=== PATIENT | female | born 1940 | race Caucasian/White ===

== ENCOUNTER 2024-02-13 04:12 | Inpatient (IN) | payer MEDICARE ==
[~2024-02-13] VITALS: Ht 165.1 cm; Wt 68.9 kg
[2024-02-13 08:30] VITALS: BP 137/86; TEMP 98.2; O2SAT 98
[2024-02-13] MEDS: OLANZAPINE 10 MG VIAL IM STA (14:20)
[2024-02-13] MEDS: DIVALPROEX SPRINKLE 125 MG CAP.SPRINK PO SCH (18:50)
[2024-02-13 20:00] VITALS: BP 105/60; TEMP 98; O2SAT 99
[2024-02-13] MEDS: risperiDONE 0.25 MG TABLET PO SCH (20:22)
[2024-02-13] MEDS: TEMAZEPAM 7.5 MG CAPSULE PO PRN (23:40)
[2024-02-14 08:09] VITALS: BP 114/60; TEMP 97.6; O2SAT 97
[2024-02-14 09:23] LABS: *CLARITY,URINE CLEAR (CLEAR); *COLOR,URINE YELLOW (YELLOW); *PROTEIN,URINE NEGATIVE (NEGATIVE); PH,URINE 6.5 (5.0-8.0); UGLUCOSE NEGATIVE (NEGATIVE)
[2024-02-14 09:24] LABS: *BILIRUBIN,URIN NEGATIVE (NEGATIVE); *BLOOD, URINE TRACE (NEGATIVE); *KETONES,URINE NEGATIVE (NEGATIVE); *UROBILINOGEN,URINE 0.2 E.U./dl (NORMAL); LEUKOCYTE ESTERASE ,URINE 1+ (NEGATIVE); NITRITE, URINE NEGATIVE (NEGATIVE)
[2024-02-14 09:39] LABS: *AMPHETAMINE, URINE NEGATIVE (NEGATIVE); *BARBITURATE, URINE NEGATIVE (NEGATIVE); *BENZODIAZEPINE, URINE POSITIVE (NEGATIVE); *CANNABINOID, URINE NEGATIVE (NEGATIVE); *COCCAINE, URINE NEGATIVE (NEGATIVE); *OPIATE, URINE NEGATIVE (NEGATIVE); *PHENCYCLIDINE SCREEN,URINE NEGATIVE (NEGATIVE); FENTANYL, URINE NEGATIVE (NEGATIVE)
[2024-02-14 16:00] VITALS: BP 144/57; TEMP 97.8; O2SAT 97
[2024-02-14 16:41] LABS: BASOPHILS % (AUTO) 0.6 % (0.0-2.0); HEMATOCRIT 37.2 % (31.2-41.9); HEMOGLOBIN 12.3 g/dL (10.9-14.3); LYMPHOCYTES # (AUTO) 0.9 K/uL (0.8-4.8); LYMPHOCYTES % (AUTO) 18.1 % (20.5-51.5); MEAN CORPUSCULAR HEMOGLOBIN 28.6 uug (24.7-32.8); MEAN CORPUSCULAR HGB CONC 33 g/dL (32.3-35.6); MEAN CORPUSCULAR VOLUME 86.4 fL (75.5-95.3); MONOCYTES # (AUTO) 0.3 K/uL (0.1-1.30); NEUTROPHILS # (AUTO) 3.5 K/uL (1.8-8.9); NEUTROPHILS % (AUTO) 73.3 % (38.5-71.5); PLATELET COUNT (AUTO) 191 K/uL (179-408); RED BLOOD CELL COUNT(AUTO) 4.31 MIL/uL (3.63-4.92); RED CELL DISTRIBUTION WIDTH 15.6 % (12.3-17.7); WHITE BLOOD COUNT (AUTO) 4.7 K/uL (3.8-11.8)
[2024-02-14 16:52] LABS: DIFFERENTIAL COMMENT 1
[2024-02-14 17:21] LABS: ALANINE AMINOTRANSFERASE 16 U/L (14-59); ALBUMIN 3.7 g/dL (3.4-5.0); ALKALINE PHOSPHATASE 92 U/L (50-136); ASPARTATE AMINOTRANSFERASE 23 U/L (15-37); BILIRUBIN,TOTAL 0.3 mg/dL (0.2-1.0); CARBON DIOXIDE 27 mmol/L (21-32); CHLORIDE 110 mmol/L (98-107); CREATININE 0.8 mg/dL (0.6-1.3); GLUCOSE 92 mg/dL (74-106); POTASSIUM 3.6 mmol/L (3.5-5.1); SODIUM SERUM 147 mmol/L (136-145); TOTAL PROTEIN, SERUM 7.8 g/dL (6.4-8.2); UREA NITROGEN, BLOOD 18 mg/dL (7-18)
[2024-02-14] MEDS: risperiDONE 0.25 MG TABLET PO SCH (18:15)
[2024-02-14 18:29] LABS: THYROID STIMULATING HORMONE 1.563 mIU/mL (0.358-3.740)
[2024-02-14 20:00] VITALS: BP 144/82; TEMP 98; O2SAT 98
[2024-02-14] MEDS: risperiDONE 0.5 MG TABLET PO SCH (21:00)
[2024-02-15 07:59] VITALS: BP 151/79; TEMP 97.7; O2SAT 99
[2024-02-15 08:06] LABS: FOLATE (FOLIC ACID), SERUM 7.5 ng/mL (>3.0)
[2024-02-15] MEDS: DIVALPROEX 250 MG TABLET.DR PO SCH (08:17)
[2024-02-15] MEDS: OLANZAPINE 10 MG VIAL IM STA (09:22)
[2024-02-15 19:59] VITALS: BP 124/65; TEMP 98; O2SAT 96
[2024-02-15] MEDS: LORAZEPAM 0.5 MG TABLET PO PRN (20:19)
[2024-02-16 07:50] VITALS: BP 132/62; TEMP 98.2; O2SAT 98
[2024-02-16] MEDS ORDERED: DIPH-1062 PO (13:28)
[2024-02-16] MEDS ORDERED: SERT-440 PO (13:28)
[2024-02-16] MEDS ORDERED: LORA0.5T48 GT (13:28)
[2024-02-16] MEDS ORDERED: QUET50TA24 PO (13:28)
[2024-02-16] MEDS ORDERED: TRAZ-182 PO (13:28)
[2024-02-16] MEDS ORDERED: DIVA125T2 PO (13:28)
[2024-02-16] MEDS ORDERED: LORA0.5T48 PO (13:28)
[2024-02-16] MEDS: OLANZAPINE 10 MG VIAL IM ONE (16:05)
[2024-02-16 16:28] VITALS: BP 99/64; TEMP 98; O2SAT 97
[2024-02-16 20:06] VITALS: BP 111/60; TEMP 97.8; O2SAT 95
[2024-02-17 07:51] VITALS: BP 113/62; O2SAT 97
[2024-02-17] MEDS: OLANZAPINE 10 MG VIAL IM STA (10:38)
[2024-02-17 16:04] VITALS: BP 128/80; TEMP 97.6; O2SAT 97
[2024-02-17 19:51] VITALS: BP 139/59; TEMP 97.9; O2SAT 99
[2024-02-18 07:30] VITALS: BP 136/62; TEMP 98.2; O2SAT 99
[2024-02-18 15:57] VITALS: BP 114/88; TEMP 98; O2SAT 99
[2024-02-18 19:50] VITALS: BP 126/74; TEMP 98.1; O2SAT 96
[2024-02-19 07:37] VITALS: BP 124/61; TEMP 98; O2SAT 99
[2024-02-19] MEDS: ASPIRIN 81 MG TAB.CHEW PO SCH (09:00)
[2024-02-19] MEDS: risperiDONE 1 MG TABLET PO SCH (10:57)
[2024-02-19] MEDS ORDERED: risperiDONE 0.5 MG TABLET PO SCH (11:00)
[2024-02-19] MEDS: DIVALPROEX 250 MG TABLET.DR PO SCH (11:00)
[2024-02-19] MEDS: OLANZAPINE 10 MG VIAL IM PRN (11:42)
[2024-02-19 15:19] VITALS: BP 101/76; TEMP 98; O2SAT 99
[2024-02-20 08:16] VITALS: BP 139/72; TEMP 98.4; O2SAT 98
[2024-02-20 15:35] VITALS: BP 128/63; TEMP 98; O2SAT 98
[2024-02-20 20:00] VITALS: BP 104/60; TEMP 97.6; O2SAT 98
[2024-02-21 07:54] VITALS: BP 129/68; TEMP 98.2; O2SAT 98
[2024-02-21] MEDS: LORAZEPAM 0.5 MG TABLET PO PRN (15:51)
[2024-02-21] MEDS: ENSURE ENLIVE (VAN) 240 ML LIQUID PO SCH (17:05)
[2024-02-21 20:00] VITALS: BP 107/71; TEMP 98.1; O2SAT 97
[2024-02-22 07:48] VITALS: BP 115/84; O2SAT 96
[2024-02-22] MEDS: DIVALPROEX SPRINKLE 125 MG CAP.SPRINK PO SCH (11:56)
[2024-02-22 16:11] VITALS: BP 131/92; O2SAT 96
[2024-02-22 19:52] VITALS: BP 100/58; TEMP 98.2; O2SAT 98
[2024-02-23 07:43] VITALS: BP 106/72; TEMP 98.4; O2SAT 96
[2024-02-23 16:24] VITALS: BP 133/52; TEMP 98.3; O2SAT 96
[2024-02-23 19:54] VITALS: BP 126/60; TEMP 98.2; O2SAT 96
[2024-02-24 07:57] VITALS: BP 97/58; TEMP 98.1; O2SAT 96
[2024-02-24 16:35] VITALS: BP 123/68; TEMP 98; O2SAT 96
[2024-02-25 08:00] VITALS: BP 92/62; TEMP 97.6; O2SAT 96
[2024-02-25 09:43] VITALS: BP 92/62; TEMP 97.6; O2SAT 97
[2024-02-25 15:24] VITALS: BP 108/65; TEMP 98; O2SAT 98
[2024-02-25 21:42] VITALS: BP 99/64; TEMP 98; O2SAT 98
[2024-02-26 07:20] VITALS: BP 141/68; TEMP 98.4; O2SAT 98
[2024-02-26] MEDS ORDERED: LORAZEPAM 0.5 MG TABLET PO PRN (11:30)
[2024-02-26] MEDS: LORAZEPAM 1 MG TABLET PO PRN (11:41)
[2024-02-26] MEDS ORDERED: risperiDONE-M 0.5 MG TAB.RAPDIS PO SCH (13:00)
[2024-02-26] MEDS: RISPERIDONE-M 0.25 MG TAB.RAPDIS PO SCH (13:19)
[2024-02-26 16:05] VITALS: BP 113/80; TEMP 98.4; O2SAT 99
[2024-02-26] MEDS: LORAZEPAM 1 MG TABLET PO SCH (16:19)
[2024-02-26 20:00] VITALS: BP 125/68; TEMP 98.5; O2SAT 100
[2024-02-26] MEDS: DIVALPROEX SPRINKLE 125 MG CAP.SPRINK PO SCH (20:27)
[2024-02-26 20:30] VITALS: O2SAT 96
[2024-02-27] MEDS ORDERED: NOREPINEPHRINE BITARTRATE 4 MG/4 ML VIAL IV ONE (05:50)
[2024-02-27] MEDS ORDERED: EPINEPHRINE 1:10,000 1 MG/10 ML DISP.SYRIN ONE (06:00)
[2024-02-27] MEDS ORDERED: NOREPINEPHRINE BITARTRATE 8 MG in IV NORMAL SALINE 242 ML IV PRN (06:30)
[2024-02-27 07:29] LABS: ABG BASE EXCESS 0.1 mmol/L (-2.0-2.0); ABG HCO3 22.6 mmol/L (22.0-26.0); ABG PCO2 30.6 mmHg (35.0-48.0); ABG PH 7.487 (7.340-7.440); ABG TOTAL HEMOGLOBIN 13.2 G/dL (12.0-16.0); AaDO2 75.5 mmHg; COHb 0.4 % (0.0-3.9); MetHb 0.1 % (0.0-1.5); O2Hb 71.9 % (94.0-97.0); VT, ABG 500 mL
[2024-02-27 08:06] LABS: LACTIC ACID 5.4 mmol/L (0.4-2.0)
[2024-02-27] MEDS ORDERED: OMEGA-3 FATTY ACIDS/FISH OIL CAPSULE PO SCH (09:00)
[2024-02-27] MEDS ORDERED: IV NORMAL SALINE 250 ML IV ONE (09:41)
[2024-02-27] MEDS ORDERED: IOHEXOL 350 100 ML INFUS..BTL ONE (09:41)
[2024-02-27] MEDS ORDERED: SWABABLE VALVE TRANSFER SET EA MC ONE (09:41)
[2024-02-28] MEDS ORDERED: OLAN10VI2 IM (12:21)
[2024-02-28] MEDS ORDERED: DIVA125C5 PO (12:21)
[2024-02-28] MEDS ORDERED: RISP1TAB7 PO (12:21)
[2024-02-28] MEDS ORDERED: LORA-259 PO (12:21)
[2024-02-28] MEDS ORDERED: RISP0.5T5 PO (12:21)
== END 2024-02-27 06:02 | disposition short-term general hospital (02) | DRG 885 ==
LOC: ER 04:12 → GPS 05:56
PROVIDERS: ADMIT Psychiatry & Neurology Psychosomatic Medicine; ATTEND Nurse Practitioner Acute Care
PROC: 5A12012 Performance of Cardiac Output, Single, Manual (ICD-10-PCS; principal; 2024-02-27)
PROC: 0BH17EZ Insertion of Endotracheal Airway into Trachea, Via Natural or Artificial Opening (ICD-10-PCS; 2024-02-27)
PROC: 06HY33Z Insertion of Infusion Device into Lower Vein, Percutaneous Approach (ICD-10-PCS; 2024-02-27)
DX: F29 Unspecified psychosis not due to a substance or known physiological condition (principal); F01.53 Vascular dementia, unspecified severity, with mood disturbance; I46.9 Cardiac arrest, cause unspecified; F01.511 Vascular dementia, unspecified severity, with agitation; F03.911 Unspecified dementia, unspecified severity, with agitation; E87.1 Hypo-osmolality and hyponatremia; E87.0 Hyperosmolality and hypernatremia; I69.351 Hemiplegia and hemiparesis following cerebral infarction affecting right dominant side; I10 Essential (primary) hypertension; M19.90 Unspecified osteoarthritis, unspecified site; Z91.148 Patient's other noncompliance with medication regimen for other reason; E78.5 Hyperlipidemia, unspecified
CPT/HCPCS: 36415; 70450; 71045; 82746; 83605; 83921; 84443; 85025; J0171; J2358; J3490; J7040; Q9967

== ENCOUNTER 2024-02-27 06:38 | Inpatient (IN) | payer MEDICARE ==
[2024-02-27] VITALS (30 sets, daily range): BP systolic 72–143; BP diastolic 52–94; TEMP 97.3–98.4; O2SAT 100
[~2024-02-27] VITALS: Ht 165.1 cm; Wt 63.5 kg
[2024-02-27] MEDS: NOREPINEPHRINE BITARTRATE 8 MG in IV NORMAL SALINE 242 ML IV PRN ×2 (06:00→15:36)
[~2024-02-27 06:38] MED LIST: DIPH-1062 PO; DIVA125T2 PO; LORA0.5T48 GT; LORA0.5T48 PO; QUET50TA24 PO; SERT-440 PO; TRAZ-182 PO
[2024-02-27] MEDS ORDERED: ETOMIDATE 20 MG/10 ML VIAL ONE (07:10)
[2024-02-27 07:41] LABS: BASOPHILS % (AUTO) 0.2 % (0.0-2.0); EOSINOPHILS # (AUTO) 0.1 K/uL (0.0-0.7); EOSINOPHILS % (AUTO) 0.3 % (0.0-7.0); HEMATOCRIT 38.4 % (31.2-41.9); HEMOGLOBIN 12.5 g/dL (10.9-14.3); LYMPHOCYTES # (AUTO) 1.8 K/uL (0.8-4.8); LYMPHOCYTES % (AUTO) 9.6 % (20.5-51.5); MEAN CORPUSCULAR HEMOGLOBIN 28.8 uug (24.7-32.8); MEAN CORPUSCULAR HGB CONC 33 g/dL (32.3-35.6); MEAN CORPUSCULAR VOLUME 88.5 fL (75.5-95.3); MONOCYTES # (AUTO) 0.7 K/uL (0.1-1.30); NEUTROPHILS # (AUTO) 15.8 K/uL (1.8-8.9); NEUTROPHILS % (AUTO) 85.9 % (38.5-71.5); PLATELET COUNT (AUTO) 144 K/uL (179-408); RED BLOOD CELL COUNT(AUTO) 4.33 MIL/uL (3.63-4.92); RED CELL DISTRIBUTION WIDTH 15.5 % (12.3-17.7); WHITE BLOOD COUNT (AUTO) 18.4 K/uL (3.8-11.8)
[2024-02-27 07:44] LABS: DIFFERENTIAL COMMENT 1
[2024-02-27 07:54] LABS: CALCIUM 8.3 mg/dL (8.5-10.1); CARBON DIOXIDE 24 mmol/L (21-32); CHLORIDE 114 mmol/L (98-107); CREATININE 1.3 mg/dL (0.6-1.3); GLUCOSE 227 mg/dL (74-106); POTASSIUM 4.5 mmol/L (3.5-5.1); SODIUM SERUM 152 mmol/L (136-145); UREA NITROGEN, BLOOD 52 mg/dL (7-18)
[2024-02-27 08:07] LABS: ALANINE AMINOTRANSFERASE 167 U/L (14-59); ALBUMIN 2.6 g/dL (3.4-5.0); ALKALINE PHOSPHATASE 89 U/L (50-136); ASPARTATE AMINOTRANSFERASE 227 U/L (15-37); BILIRUBIN,TOTAL 0.9 mg/dL (0.2-1.0); NT-PRO BNP 309 pg/mL (0-125); TOTAL PROTEIN, SERUM 7.2 g/dL (6.4-8.2)
[2024-02-27] MEDS: IV NORMAL SALINE 1000 ML BAG IV ONE (08:23)
[2024-02-27] MEDS ORDERED: AMIODARONE HCL 150 MG/3 ML VIAL IV ONE (08:35)
[2024-02-27] MEDS: AMIODARONE HCL IV 150 MG in IV DEXTROSE 5% 100 ML IV ONE (08:45)
[2024-02-27] MEDS ORDERED: PIPERACILLIN SODIUM/TAZOBACTAM 3.375 G in IV DEXTROSE 5% 50 ML IV SCH (09:15)
[2024-02-27 09:37] LABS: ABG BASE EXCESS -0.6 mmol/L (-2.0-2.0); ABG HCO3 23.2 mmol/L (22.0-26.0); ABG PCO2 35.4 mmHg (35.0-48.0); ABG PH 7.434 (7.340-7.440); ABG SITE RIGHT BRACHIAL; ABG TOTAL HEMOGLOBIN 12.7 G/dL (12.0-16.0); AaDO2 99.9 mmHg; COHb 0.1 % (0.0-3.9); MetHb 0.2 % (0.0-1.5); O2Hb 99.6 % (94.0-97.0); VT, ABG 500 mL
[2024-02-27] MEDS ORDERED: NOREPINEPHRINE BITARTRATE 4 MG/4 ML VIAL IV ONE (09:47)
[2024-02-27] MEDS: PROPOFOL 1,000 MG/100 ML BOTTLE IV ONE (10:54)
[2024-02-27] MEDS: AMIODARONE HCL IV 450 MG in IV DEXTROSE 5% 250 ML IV PRN (10:58)
[2024-02-27] MEDS: PANTOPRAZOLE SODIUM 40 MG VIAL IV SCH (13:18)
[2024-02-27] MEDS: IV DEXTROSE 5% 500 ML BAG IV ONE (13:20)
[2024-02-27] MEDS: PIPERACILLIN SODIUM/TAZOBACTAM 3.375 G in IV DEXTROSE 5% 100 ML IV SCH (13:21)
[2024-02-27] MEDS: HEPARIN SODIUM,PORCINE 1,000 UNITS/ML VIAL IV ONE (15:06)
[2024-02-27] MEDS: HEPARIN SODIUM,PORCINE 5,000 UNITS/ML VIAL SQ ONE (15:06)
[2024-02-27] MEDS: HEPARIN/D5W DRIP 500 ML IV PRN (15:09)
[2024-02-27] MEDS: IV D5 1/2 NS 1000 ML 1,000 ML IV PRN (16:31)
[2024-02-27] MEDS: PROPOFOL 100 ML IV PRN (23:13)
[2024-02-28] VITALS (28 sets, daily range): BP systolic 96–141; BP diastolic 45–77; TEMP 97.3–99.6; O2SAT 99–100
[2024-02-28 06:21] LABS: ABG BASE EXCESS 2.9 mmol/L (-2.0-2.0); ABG HCO3 24.9 mmol/L (22.0-26.0); ABG PCO2 29.4 mmHg (35.0-48.0); ABG PH 7.545 (7.340-7.440); ABG PO2 131.1 mmHg (75.0-100.0); ABG SITE ALINE; ABG TOTAL HEMOGLOBIN 11.1 G/dL (12.0-16.0); COHb 0.3 % (0.0-3.9); MetHb 0.2 % (0.0-1.5); O2Hb 98.1 % (94.0-97.0); VT, ABG 500 mL
[2024-02-28 07:27] LABS: BASOPHILS % (AUTO) 0.3 % (0.0-2.0); EOSINOPHILS # (AUTO) 0.1 K/uL (0.0-0.7); EOSINOPHILS % (AUTO) 0.5 % (0.0-7.0); HEMATOCRIT 32.6 % (31.2-41.9); HEMOGLOBIN 10.6 g/dL (10.9-14.3); LYMPHOCYTES # (AUTO) 1.4 K/uL (0.8-4.8); MEAN CORPUSCULAR HEMOGLOBIN 28.7 uug (24.7-32.8); MEAN CORPUSCULAR HGB CONC 33 g/dL (32.3-35.6); MEAN CORPUSCULAR VOLUME 88.3 fL (75.5-95.3); MONOCYTES # (AUTO) 1.1 K/uL (0.1-1.30); MONOCYTES % (AUTO) 9.6 % (0.0-11.0); NEUTROPHILS # (AUTO) 8.7 K/uL (1.8-8.9); NEUTROPHILS % (AUTO) 77.6 % (38.5-71.5); PLATELET COUNT (AUTO) 106 K/uL (179-408); RED BLOOD CELL COUNT(AUTO) 3.69 MIL/uL (3.63-4.92); RED CELL DISTRIBUTION WIDTH 15.1 % (12.3-17.7); WHITE BLOOD COUNT (AUTO) 11.3 K/uL (3.8-11.8)
[2024-02-28 07:34] LABS: DIFFERENTIAL COMMENT 1
[2024-02-28 07:54] LABS: ALANINE AMINOTRANSFERASE 94 U/L (14-59); ALKALINE PHOSPHATASE 70 U/L (50-136); ASPARTATE AMINOTRANSFERASE 71 U/L (15-37); BILIRUBIN,TOTAL 0.5 mg/dL (0.2-1.0); CARBON DIOXIDE 28 mmol/L (21-32); CHLORIDE 109 mmol/L (98-107); GLUCOSE 138 mg/dL (74-106); MAGNESIUM 2.4 mg/dL (1.8-2.4); POTASSIUM 4.1 mmol/L (3.5-5.1); SODIUM SERUM 146 mmol/L (136-145); TOTAL PROTEIN, SERUM 5.9 g/dL (6.4-8.2); UREA NITROGEN, BLOOD 35 mg/dL (7-18)
[2024-02-28] MEDS ORDERED: PANTOPRAZOLE SODIUM 40 MG VIAL IV SCH (09:00)
[2024-02-28 10:56] LABS: *BILIRUBIN,URIN NEGATIVE (NEGATIVE); *BLOOD, URINE 2+ (NEGATIVE); *CLARITY,URINE CLEAR (CLEAR); *COLOR,URINE YELLOW (YELLOW); *KETONES,URINE NEGATIVE (NEGATIVE); *PROTEIN,URINE TRACE (NEGATIVE); *UROBILINOGEN,URINE 0.2 E.U./dl (NORMAL); LEUKOCYTE ESTERASE ,URINE NEGATIVE (NEGATIVE); NITRITE, URINE NEGATIVE (NEGATIVE); PH,URINE 5.5 (5.0-8.0); UGLUCOSE NEGATIVE (NEGATIVE)
[2024-02-28] MEDS ORDERED: OLAN10VI2 IM (12:21)
[2024-02-28] MEDS ORDERED: LORA-259 PO (12:21)
[2024-02-28] MEDS ORDERED: RISP1TAB7 PO (12:21)
[2024-02-28] MEDS ORDERED: RISP0.5T5 PO (12:21)
[2024-02-28] MEDS ORDERED: DIVA125C5 PO (12:21)
[2024-02-28 12:32] LABS: RBC,URINE 20-50 /HPF (0-3); WBC,URINE 0-3 /HPF (0-3)
[2024-02-28 12:33] LABS: BACTERIA,URINE MODERATE /HPF (NONE SEEN); SQUAMOUS EPITHELIAL CELL,UR FEW /HPF (NONE SEEN); URIC ACID CRYSTALS,URINE PRESENT /HPF (NONE SEEN)
[2024-02-28] MEDS: REMEDY ESSENTIAL ZINC PASTE 113 GM TOP SCH (20:34)
[2024-02-28] MEDS ORDERED: ETOMIDATE 20 MG/10 ML VIAL ONE (23:00)
[2024-02-29] VITALS (32 sets, daily range): BP systolic 95–167; BP diastolic 54–130; TEMP 98.7–100.3; O2SAT 96–100
[2024-02-29 05:21] LABS: BASOPHILS % (AUTO) 0.3 % (0.0-2.0); EOSINOPHILS # (AUTO) 0.2 K/uL (0.0-0.7); EOSINOPHILS % (AUTO) 1.7 % (0.0-7.0); HEMOGLOBIN 9.4 g/dL (10.9-14.3); LYMPHOCYTES # (AUTO) 1.3 K/uL (0.8-4.8); LYMPHOCYTES % (AUTO) 13.8 % (20.5-51.5); MEAN CORPUSCULAR HEMOGLOBIN 29.3 uug (24.7-32.8); MEAN CORPUSCULAR HGB CONC 34 g/dL (32.3-35.6); MEAN CORPUSCULAR VOLUME 87.2 fL (75.5-95.3); MONOCYTES # (AUTO) 0.6 K/uL (0.1-1.30); MONOCYTES % (AUTO) 6.4 % (0.0-11.0); NEUTROPHILS # (AUTO) 7.4 K/uL (1.8-8.9); NEUTROPHILS % (AUTO) 77.8 % (38.5-71.5); PLATELET COUNT (AUTO) 127 K/uL (179-408); RED BLOOD CELL COUNT(AUTO) 3.21 MIL/uL (3.63-4.92); RED CELL DISTRIBUTION WIDTH 14.8 % (12.3-17.7); WHITE BLOOD COUNT (AUTO) 9.5 K/uL (3.8-11.8)
[2024-02-29 05:57] LABS: DIFFERENTIAL COMMENT 1
[2024-02-29 06:07] LABS: CREATININE 0.7 mg/dL (0.6-1.3); MAGNESIUM 2.2 mg/dL (1.8-2.4); PHOSPHOROUS 3.4 mg/dL (2.5-4.9); POTASSIUM 3.6 mmol/L (3.5-5.1)
[2024-02-29 07:29] LABS: ABG BASE EXCESS 2.1 mmol/L (-2.0-2.0); ABG HCO3 26.5 mmol/L (22.0-26.0); ABG PCO2 40.3 mmHg (35.0-48.0); ABG PH 7.435 (7.340-7.440); ABG PO2 70.9 mmHg (75.0-100.0); ABG TOTAL HEMOGLOBIN 10.6 G/dL (12.0-16.0); AaDO2 94.8 mmHg; COHb 0.3 % (0.0-3.9); MetHb 0.2 % (0.0-1.5); O2Hb 93.4 % (94.0-97.0)
[2024-02-29] MEDS ORDERED: DC PROPOFOL ONCE EXTUBATED XX PRN (08:00)
[2024-02-29] MEDS: ACETAMINOPHEN 650 MG SUPP.RECT RC PRN (08:24)
[2024-02-29] MEDS: REMEDY ESSENTIAL ZINC PASTE 113 GM TOP PRN (08:24)
[2024-02-29] MEDS: HEPARIN SODIUM,PORCINE 5,000 UNITS/ML VIAL IV ONE (15:42)
[2024-03-01] VITALS (26 sets, daily range): BP systolic 136–189; BP diastolic 56–92; TEMP 97.7–99.4; O2SAT 96–100
[2024-03-01 04:59] LABS: BASOPHILS % (AUTO) 0.5 % (0.0-2.0); EOSINOPHILS # (AUTO) 0.1 K/uL (0.0-0.7); EOSINOPHILS % (AUTO) 1.5 % (0.0-7.0); HEMATOCRIT 28.5 % (31.2-41.9); HEMOGLOBIN 9.5 g/dL (10.9-14.3); LYMPHOCYTES # (AUTO) 0.6 K/uL (0.8-4.8); LYMPHOCYTES % (AUTO) 8.7 % (20.5-51.5); MEAN CORPUSCULAR HGB CONC 34 g/dL (32.3-35.6); MEAN CORPUSCULAR VOLUME 86.7 fL (75.5-95.3); MONOCYTES # (AUTO) 0.4 K/uL (0.1-1.30); MONOCYTES % (AUTO) 5.8 % (0.0-11.0); NEUTROPHILS # (AUTO) 5.8 K/uL (1.8-8.9); NEUTROPHILS % (AUTO) 83.5 % (38.5-71.5); PLATELET COUNT (AUTO) 182 K/uL (179-408); RED BLOOD CELL COUNT(AUTO) 3.29 MIL/uL (3.63-4.92); RED CELL DISTRIBUTION WIDTH 14.3 % (12.3-17.7); WHITE BLOOD COUNT (AUTO) 6.9 K/uL (3.8-11.8)
[2024-03-01 05:18] LABS: CALCIUM 8.1 mg/dL (8.5-10.1); CARBON DIOXIDE 28 mmol/L (21-32); CHLORIDE 109 mmol/L (98-107); CREATININE 0.6 mg/dL (0.6-1.3); GLUCOSE 93 mg/dL (74-106); MAGNESIUM 1.9 mg/dL (1.8-2.4); PHOSPHOROUS 2.8 mg/dL (2.5-4.9); POTASSIUM 3.2 mmol/L (3.5-5.1); SODIUM SERUM 145 mmol/L (136-145); UREA NITROGEN, BLOOD 13 mg/dL (7-18)
[2024-03-01 05:37] LABS: ABG BASE EXCESS 1.7 mmol/L (-2.0-2.0); ABG HCO3 24.7 mmol/L (22.0-26.0); ABG PCO2 33.2 mmHg (35.0-48.0); ABG PO2 81.6 mmHg (75.0-100.0); ABG SITE LEFT RADIAL; ABG TOTAL HEMOGLOBIN 10.8 G/dL (12.0-16.0); AaDO2 96.9 mmHg; COHb 0.3 % (0.0-3.9); MetHb 0.2 % (0.0-1.5); O2Hb 95.7 % (94.0-97.0)
[2024-03-01 05:40] LABS: DIFFERENTIAL COMMENT 1
[2024-03-01] MEDS: HEPARIN SODIUM,PORCINE 5,000 UNITS/ML VIAL IV ONE (07:41)
[2024-03-01] MEDS: POTASSIUM CHLORIDE 50 ML IV SCH (10:48)
[2024-03-01] MEDS: METOPROLOL TARTRATE 5 MG/5 ML VIAL IVP PRN (11:45)
[2024-03-01] MEDS: PROTEIN SUPPLEMENT (PROSTAT) 30 ML LIQUID PO SCH (12:04)
[2024-03-02] VITALS (17 sets, daily range): BP systolic 93–165; BP diastolic 64–96; TEMP 97.6–99.7; O2SAT 95–100
[2024-03-02 04:53] LABS: BASOPHILS % (AUTO) 0.4 % (0.0-2.0); EOSINOPHILS # (AUTO) 0.1 K/uL (0.0-0.7); EOSINOPHILS % (AUTO) 1.7 % (0.0-7.0); HEMATOCRIT 31.3 % (31.2-41.9); HEMOGLOBIN 10.6 g/dL (10.9-14.3); LYMPHOCYTES # (AUTO) 0.6 K/uL (0.8-4.8); LYMPHOCYTES % (AUTO) 8.8 % (20.5-51.5); MEAN CORPUSCULAR HEMOGLOBIN 29.2 uug (24.7-32.8); MEAN CORPUSCULAR HGB CONC 34 g/dL (32.3-35.6); MEAN CORPUSCULAR VOLUME 86.2 fL (75.5-95.3); MONOCYTES # (AUTO) 0.4 K/uL (0.1-1.30); MONOCYTES % (AUTO) 5.8 % (0.0-11.0); NEUTROPHILS % (AUTO) 83.3 % (38.5-71.5); PLATELET COUNT (AUTO) 251 K/uL (179-408); RED BLOOD CELL COUNT(AUTO) 3.64 MIL/uL (3.63-4.92); RED CELL DISTRIBUTION WIDTH 14.4 % (12.3-17.7); WHITE BLOOD COUNT (AUTO) 7.2 K/uL (3.8-11.8)
[2024-03-02 05:22] LABS: DIFFERENTIAL COMMENT 1
[2024-03-02 05:36] LABS: ALANINE AMINOTRANSFERASE 44 U/L (14-59); ALKALINE PHOSPHATASE 161 U/L (50-136); ASPARTATE AMINOTRANSFERASE 28 U/L (15-37); BILIRUBIN,TOTAL 1.2 mg/dL (0.2-1.0); CALCIUM 8.3 mg/dL (8.5-10.1); CARBON DIOXIDE 29 mmol/L (21-32); CHLORIDE 105 mmol/L (98-107); CREATININE 0.7 mg/dL (0.6-1.3); GLUCOSE 76 mg/dL (74-106); MAGNESIUM 1.9 mg/dL (1.8-2.4); PHOSPHOROUS 3.1 mg/dL (2.5-4.9); POTASSIUM 3.1 mmol/L (3.5-5.1); SODIUM SERUM 141 mmol/L (136-145); TOTAL PROTEIN, SERUM 6.3 g/dL (6.4-8.2); UREA NITROGEN, BLOOD 15 mg/dL (7-18)
[2024-03-02] MEDS: HEPARIN SODIUM,PORCINE 5,000 UNITS/ML VIAL IV ONE (06:55)
[2024-03-02] MEDS: POTASSIUM CHLORIDE 50 ML IV SCH (08:01)
[2024-03-02] MEDS: DIVALPROEX SPRINKLE 125 MG CAP.SPRINK PO SCH ×2 (11:03→13:50)
[2024-03-02] MEDS: METOPROLOL TARTRATE 25 MG TABLET PO SCH (16:48)
[2024-03-02] MEDS ORDERED: CEFTRIAXONE /D5W 50ML IVPB **ER PYXIS IV ONE (21:53)
[2024-03-02] MEDS: CEFTRIAXONE 1 G in IV DEXTROSE 5% 50 ML IV ONE (21:57)
[2024-03-03] VITALS (10 sets, daily range): BP systolic 106–140; BP diastolic 49–75; TEMP 97.3–98.4; O2SAT 95–100
[2024-03-03 05:13] LABS: BASOPHILS % (AUTO) 0.8 % (0.0-2.0); EOSINOPHILS # (AUTO) 0.2 K/uL (0.0-0.7); EOSINOPHILS % (AUTO) 3.2 % (0.0-7.0); HEMOGLOBIN 9.9 g/dL (10.9-14.3); LYMPHOCYTES # (AUTO) 0.7 K/uL (0.8-4.8); LYMPHOCYTES % (AUTO) 13.7 % (20.5-51.5); MEAN CORPUSCULAR HGB CONC 34 g/dL (32.3-35.6); MEAN CORPUSCULAR VOLUME 84.8 fL (75.5-95.3); MONOCYTES # (AUTO) 0.4 K/uL (0.1-1.30); MONOCYTES % (AUTO) 8.6 % (0.0-11.0); NEUTROPHILS # (AUTO) 3.8 K/uL (1.8-8.9); NEUTROPHILS % (AUTO) 73.7 % (38.5-71.5); PLATELET COUNT (AUTO) 288 K/uL (179-408); RED BLOOD CELL COUNT(AUTO) 3.42 MIL/uL (3.63-4.92); RED CELL DISTRIBUTION WIDTH 14.2 % (12.3-17.7); WHITE BLOOD COUNT (AUTO) 5.2 K/uL (3.8-11.8)
[2024-03-03 05:14] LABS: DIFFERENTIAL COMMENT 1
[2024-03-03 05:22] LABS: CALCIUM 8.4 mg/dL (8.5-10.1); CARBON DIOXIDE 27 mmol/L (21-32); CHLORIDE 107 mmol/L (98-107); CREATININE 0.6 mg/dL (0.6-1.3); GLUCOSE 85 mg/dL (74-106); MAGNESIUM 1.9 mg/dL (1.8-2.4); PHOSPHOROUS 3.2 mg/dL (2.5-4.9); POTASSIUM 3.2 mmol/L (3.5-5.1); SODIUM SERUM 142 mmol/L (136-145); UREA NITROGEN, BLOOD 14 mg/dL (7-18)
[2024-03-03 06:04] LABS: ABG BASE EXCESS 0.7 mmol/L (-2.0-2.0); ABG HCO3 23.8 mmol/L (22.0-26.0); ABG PCO2 33.2 mmHg (35.0-48.0); ABG PH 7.474 (7.340-7.440); ABG PO2 99.7 mmHg (75.0-100.0); ABG SITE LEFT RADIAL; ABG TOTAL HEMOGLOBIN 11.2 G/dL (12.0-16.0); AaDO2 97.9 mmHg; COHb 0.3 % (0.0-3.9); MetHb 0.4 % (0.0-1.5); O2Hb 96.9 % (94.0-97.0)
[2024-03-03] MEDS: POTASSIUM CHLORIDE 20 MEQ TAB.PRT.SR PO ONE (06:38)
[2024-03-03] MEDS ORDERED: PANTOPRAZOLE SODIUM 40 MG TABLET.DR PO SCH (07:00)
[2024-03-03] MEDS: PANTOPRAZOLE ORAL SUSPENSION 40 MG SUSPDR.PKT GT SCH (09:07)
[2024-03-03] MEDS ORDERED: POTASSIUM CHLORIDE 50 ML IV SCH (12:15)
[2024-03-03] MEDS ORDERED: HEPARIN/NS 500 ML ONE (15:12)
[2024-03-03] MEDS ORDERED: HEPARIN SODIUM,PORCINE 1,000 UNITS/ML VIAL ONE (15:12)
[2024-03-03] MEDS ORDERED: IOHEXOL 300MG/ML 50 ML VIAL ONE (15:12)
[2024-03-03] MEDS ORDERED: LIDOCAINE HCL 1% 20 ML VIAL ONE (15:13)
[2024-03-03] MEDS ORDERED: PROPOFOL 200 MG/20 ML BOTTLE ONE (16:00)
[2024-03-03] MEDS ORDERED: FENTANYL CITRATE 100 MCG/2 ML AMPUL ONE (16:46)
[2024-03-03] MEDS ORDERED: KETAMINE HCL 500 MG/5 ML VIAL ONE (16:46)
[2024-03-03] MEDS ORDERED: FAMOTIDINE. 20 MG/2 ML VIAL IV ONE (16:47)
[2024-03-03] MEDS ORDERED: ALBUMIN HUMAN 5% 500 ML ONE (16:47)
[2024-03-03] MEDS ORDERED: MISCELLANEOUS MED XX PRN (19:00)
[2024-03-03] MEDS: CEFTRIAXONE 1 G in IV DEXTROSE 5% 50 ML IV SCH (20:35)
[2024-03-04 00:09] VITALS: BP 166/80; TEMP 97.4; O2SAT 96
[2024-03-04 05:13] VITALS: BP 148/92; TEMP 98.6; O2SAT 98
[2024-03-04 07:20] LABS: BASOPHILS % (AUTO) 0.6 % (0.0-2.0); EOSINOPHILS # (AUTO) 0.1 K/uL (0.0-0.7); EOSINOPHILS % (AUTO) 2.6 % (0.0-7.0); HEMATOCRIT 29.9 % (31.2-41.9); HEMOGLOBIN 10.3 g/dL (10.9-14.3); LYMPHOCYTES # (AUTO) 0.8 K/uL (0.8-4.8); LYMPHOCYTES % (AUTO) 14.6 % (20.5-51.5); MEAN CORPUSCULAR HEMOGLOBIN 29.4 uug (24.7-32.8); MEAN CORPUSCULAR HGB CONC 34 g/dL (32.3-35.6); MEAN CORPUSCULAR VOLUME 85.5 fL (75.5-95.3); MONOCYTES # (AUTO) 0.5 K/uL (0.1-1.30); MONOCYTES % (AUTO) 9.1 % (0.0-11.0); NEUTROPHILS # (AUTO) 3.8 K/uL (1.8-8.9); NEUTROPHILS % (AUTO) 73.1 % (38.5-71.5); PLATELET COUNT (AUTO) 327 K/uL (179-408); RED BLOOD CELL COUNT(AUTO) 3.49 MIL/uL (3.63-4.92); RED CELL DISTRIBUTION WIDTH 14.3 % (12.3-17.7); WHITE BLOOD COUNT (AUTO) 5.2 K/uL (3.8-11.8)
[2024-03-04 07:26] LABS: CALCIUM 8.6 mg/dL (8.5-10.1); CARBON DIOXIDE 27 mmol/L (21-32); CHLORIDE 109 mmol/L (98-107); CREATININE 0.6 mg/dL (0.6-1.3); GLUCOSE 71 mg/dL (74-106); POTASSIUM 3.5 mmol/L (3.5-5.1); SODIUM SERUM 144 mmol/L (136-145); UREA NITROGEN, BLOOD 12 mg/dL (7-18)
[2024-03-04 08:00] VITALS: BP 152/62; TEMP 97.7; O2SAT 92
[2024-03-04 08:04] LABS: DIFFERENTIAL COMMENT 1
[2024-03-04] MEDS ORDERED: CEFTRIAXONE 1 G in IV DEXTROSE 5% 50 ML IV SCH (09:00)
[2024-03-04] MEDS: POTASSIUM CHLORIDE 50 ML IV SCH (09:40)
[2024-03-04] MEDS: ENOXAPARIN SODIUM 60 MG/0.6 ML DISP.SYRIN SQ SCH (10:57)
[2024-03-04 12:00] VITALS: BP 154/73; TEMP 97.9; O2SAT 100
[2024-03-04 16:25] VITALS: BP 156/57; TEMP 97.5; O2SAT 100
[2024-03-04 20:00] VITALS: BP 145/48; TEMP 97.9; O2SAT 93
[2024-03-04] MEDS: OLANZAPINE 10 MG VIAL IM ONE (22:07)
[2024-03-05 00:22] VITALS: BP 151/70; TEMP 98; O2SAT 96
[2024-03-05 04:15] VITALS: BP 134/91; TEMP 97.4; O2SAT 94
[2024-03-05 07:32] LABS: BASOPHILS % (AUTO) 0.5 % (0.0-2.0); EOSINOPHILS # (AUTO) 0.2 K/uL (0.0-0.7); EOSINOPHILS % (AUTO) 2.9 % (0.0-7.0); HEMATOCRIT 32.4 % (31.2-41.9); HEMOGLOBIN 11.1 g/dL (10.9-14.3); LYMPHOCYTES # (AUTO) 0.9 K/uL (0.8-4.8); MEAN CORPUSCULAR HEMOGLOBIN 29.2 uug (24.7-32.8); MEAN CORPUSCULAR HGB CONC 34 g/dL (32.3-35.6); MEAN CORPUSCULAR VOLUME 85.2 fL (75.5-95.3); MONOCYTES # (AUTO) 0.5 K/uL (0.1-1.30); MONOCYTES % (AUTO) 9.4 % (0.0-11.0); NEUTROPHILS # (AUTO) 3.8 K/uL (1.8-8.9); NEUTROPHILS % (AUTO) 70.2 % (38.5-71.5); PLATELET COUNT (AUTO) 379 K/uL (179-408); WHITE BLOOD COUNT (AUTO) 5.5 K/uL (3.8-11.8)
[2024-03-05 07:47] LABS: CALCIUM 8.9 mg/dL (8.5-10.1); CARBON DIOXIDE 25 mmol/L (21-32); CHLORIDE 105 mmol/L (98-107); CREATININE 0.6 mg/dL (0.6-1.3); GLUCOSE 57 mg/dL (74-106); MAGNESIUM 2.1 mg/dL (1.8-2.4); PHOSPHOROUS 2.7 mg/dL (2.5-4.9); POTASSIUM 3.6 mmol/L (3.5-5.1); SODIUM SERUM 142 mmol/L (136-145); UREA NITROGEN, BLOOD 11 mg/dL (7-18)
[2024-03-05 07:51] LABS: DIFFERENTIAL COMMENT 1
[2024-03-05 07:55] VITALS: BP 153/74; TEMP 98; O2SAT 86
[2024-03-05] MEDS ORDERED: hydrALAZINE HCL 20 MG/1 ML VIAL IV PRN (09:30)
[2024-03-05 12:00] VITALS: BP 134/82; TEMP 97.6; O2SAT 92
[2024-03-05 16:10] VITALS: BP 147/69; TEMP 97.5; O2SAT 90
[2024-03-05] MEDS: JEVITY 1.2 1000 ML LIQUID GT PRN (16:16)
[2024-03-05] MEDS: OLANZAPINE 10 MG VIAL IM ONE (21:14)
[2024-03-05 21:42] VITALS: BP 144/80; TEMP 98.2; O2SAT 98
[2024-03-06 00:46] VITALS: BP 144/75; TEMP 98.6; O2SAT 99
[2024-03-06 06:46] VITALS: BP 100/69; TEMP 98.6; O2SAT 100
[2024-03-06] MEDS: DIVALPROEX SPRINKLE 125 MG CAP.SPRINK PO SCH (09:19)
[2024-03-06 11:06] VITALS: BP 122/60; TEMP 98; O2SAT 94
[2024-03-06 15:29] VITALS: BP 135/62; TEMP 97.6; O2SAT 98
[2024-03-06] MEDS: OLANZAPINE 10 MG VIAL IM ONE (18:43)
[2024-03-06 20:00] VITALS: BP 132/71; TEMP 97.9; O2SAT 94
[2024-03-06 20:37] VITALS: O2SAT 95
[2024-03-06] MEDS: APIXABAN 5 MG TABLET NG SCH (21:24)
[2024-03-07 06:00] VITALS: BP 130/69; TEMP 98.6; O2SAT 95
[2024-03-07 06:14] LABS: BASOPHILS % (AUTO) 0.6 % (0.0-2.0); EOSINOPHILS # (AUTO) 0.2 K/uL (0.0-0.7); EOSINOPHILS % (AUTO) 3.2 % (0.0-7.0); HEMATOCRIT 30.2 % (31.2-41.9); HEMOGLOBIN 10.4 g/dL (10.9-14.3); LYMPHOCYTES # (AUTO) 1.1 K/uL (0.8-4.8); LYMPHOCYTES % (AUTO) 19.7 % (20.5-51.5); MEAN CORPUSCULAR HEMOGLOBIN 29.3 uug (24.7-32.8); MEAN CORPUSCULAR HGB CONC 34 g/dL (32.3-35.6); MEAN CORPUSCULAR VOLUME 85.4 fL (75.5-95.3); MONOCYTES # (AUTO) 0.5 K/uL (0.1-1.30); MONOCYTES % (AUTO) 9.8 % (0.0-11.0); NEUTROPHILS # (AUTO) 3.6 K/uL (1.8-8.9); NEUTROPHILS % (AUTO) 66.7 % (38.5-71.5); PLATELET COUNT (AUTO) 359 K/uL (179-408); RED BLOOD CELL COUNT(AUTO) 3.54 MIL/uL (3.63-4.92); RED CELL DISTRIBUTION WIDTH 14.7 % (12.3-17.7); WHITE BLOOD COUNT (AUTO) 5.4 K/uL (3.8-11.8)
[2024-03-07 06:25] LABS: DIFFERENTIAL COMMENT 1
[2024-03-07 06:27] LABS: CALCIUM 8.2 mg/dL (8.5-10.1); CARBON DIOXIDE 27 mmol/L (21-32); CHLORIDE 110 mmol/L (98-107); CREATININE 0.6 mg/dL (0.6-1.3); GLUCOSE 109 mg/dL (74-106); PHOSPHOROUS 3.1 mg/dL (2.5-4.9); POTASSIUM 3.6 mmol/L (3.5-5.1); SODIUM SERUM 144 mmol/L (136-145); UREA NITROGEN, BLOOD 13 mg/dL (7-18)
[2024-03-07 08:00] VITALS: BP 118/50; TEMP 97.6; O2SAT 97
[2024-03-07 12:00] VITALS: BP 98/62; TEMP 97.2; O2SAT 98
[2024-03-07 16:00] VITALS: BP 136/68; TEMP 97.6; O2SAT 97
[2024-03-07 20:27] VITALS: O2SAT 95
[2024-03-07 20:34] VITALS: BP 128/99; TEMP 98; O2SAT 96
[2024-03-07] MEDS: ACETAMINOPHEN 325 MG TABLET PO PRN (22:10)
[2024-03-08 05:20] VITALS: BP 133/60; TEMP 98.1; O2SAT 94
[2024-03-08 06:21] LABS: BASOPHILS % (AUTO) 0.8 % (0.0-2.0); EOSINOPHILS # (AUTO) 0.2 K/uL (0.0-0.7); EOSINOPHILS % (AUTO) 2.7 % (0.0-7.0); HEMATOCRIT 33.3 % (31.2-41.9); HEMOGLOBIN 11.3 g/dL (10.9-14.3); LYMPHOCYTES # (AUTO) 1.3 K/uL (0.8-4.8); LYMPHOCYTES % (AUTO) 19.5 % (20.5-51.5); MEAN CORPUSCULAR HGB CONC 34 g/dL (32.3-35.6); MEAN CORPUSCULAR VOLUME 85.5 fL (75.5-95.3); MONOCYTES # (AUTO) 0.5 K/uL (0.1-1.30); MONOCYTES % (AUTO) 7.4 % (0.0-11.0); NEUTROPHILS # (AUTO) 4.5 K/uL (1.8-8.9); NEUTROPHILS % (AUTO) 69.6 % (38.5-71.5); PLATELET COUNT (AUTO) 373 K/uL (179-408); RED BLOOD CELL COUNT(AUTO) 3.89 MIL/uL (3.63-4.92); RED CELL DISTRIBUTION WIDTH 14.8 % (12.3-17.7); WHITE BLOOD COUNT (AUTO) 6.4 K/uL (3.8-11.8)
[2024-03-08 06:24] LABS: DIFFERENTIAL COMMENT 1
[2024-03-08 06:27] LABS: CALCIUM 8.5 mg/dL (8.5-10.1); CARBON DIOXIDE 27 mmol/L (21-32); CHLORIDE 107 mmol/L (98-107); CREATININE 0.5 mg/dL (0.6-1.3); GLUCOSE 115 mg/dL (74-106); SODIUM SERUM 140 mmol/L (136-145); UREA NITROGEN, BLOOD 14 mg/dL (7-18)
[2024-03-08 08:32] VITALS: BP 134/63; TEMP 97.8; O2SAT 96
[2024-03-08 11:39] VITALS: BP 134/73; TEMP 98; O2SAT 94
[2024-03-08 15:22] VITALS: BP 130/78; TEMP 98.2; O2SAT 96
[2024-03-08 21:59] VITALS: TEMP 99.5
[2024-03-08 23:19] VITALS: O2SAT 95
[2024-03-09 06:10] VITALS: TEMP 100.3
[2024-03-09 06:30] LABS: BASOPHILS % (AUTO) 0.6 % (0.0-2.0); EOSINOPHILS # (AUTO) 0.1 K/uL (0.0-0.7); EOSINOPHILS % (AUTO) 1.8 % (0.0-7.0); HEMATOCRIT 33.6 % (31.2-41.9); HEMOGLOBIN 11.4 g/dL (10.9-14.3); LYMPHOCYTES # (AUTO) 1.3 K/uL (0.8-4.8); LYMPHOCYTES % (AUTO) 16.2 % (20.5-51.5); MEAN CORPUSCULAR HGB CONC 34 g/dL (32.3-35.6); MEAN CORPUSCULAR VOLUME 85.5 fL (75.5-95.3); MONOCYTES # (AUTO) 0.6 K/uL (0.1-1.30); MONOCYTES % (AUTO) 7.5 % (0.0-11.0); NEUTROPHILS # (AUTO) 5.7 K/uL (1.8-8.9); NEUTROPHILS % (AUTO) 73.9 % (38.5-71.5); PLATELET COUNT (AUTO) 394 K/uL (179-408); RED BLOOD CELL COUNT(AUTO) 3.92 MIL/uL (3.63-4.92); RED CELL DISTRIBUTION WIDTH 15.4 % (12.3-17.7); WHITE BLOOD COUNT (AUTO) 7.8 K/uL (3.8-11.8)
[2024-03-09 06:46] LABS: DIFFERENTIAL COMMENT 1
[2024-03-09 06:47] LABS: CALCIUM 8.8 mg/dL (8.5-10.1); CARBON DIOXIDE 29 mmol/L (21-32); CHLORIDE 107 mmol/L (98-107); CREATININE 0.6 mg/dL (0.6-1.3); GLUCOSE 90 mg/dL (74-106); POTASSIUM 4.1 mmol/L (3.5-5.1); SODIUM SERUM 142 mmol/L (136-145); UREA NITROGEN, BLOOD 12 mg/dL (7-18)
[2024-03-09 11:10] VITALS: BP 122/67; TEMP 98.4; O2SAT 100
[2024-03-09 15:02] VITALS: BP 100/50; TEMP 97.6; O2SAT 92
[2024-03-09 20:52] VITALS: BP 119/55; TEMP 98.2; O2SAT 94
[2024-03-09] MEDS: LORAZEPAM 2 MG/1 ML VIAL IV PRN (23:36)
[2024-03-10 05:52] VITALS: BP 116/62; TEMP 98.1; O2SAT 92
[2024-03-10 06:34] LABS: BASOPHILS % (AUTO) 0.4 % (0.0-2.0); EOSINOPHILS # (AUTO) 0.2 K/uL (0.0-0.7); EOSINOPHILS % (AUTO) 1.8 % (0.0-7.0); HEMATOCRIT 34.4 % (31.2-41.9); HEMOGLOBIN 11.7 g/dL (10.9-14.3); LYMPHOCYTES # (AUTO) 1.1 K/uL (0.8-4.8); LYMPHOCYTES % (AUTO) 13.7 % (20.5-51.5); MEAN CORPUSCULAR HEMOGLOBIN 29.2 uug (24.7-32.8); MEAN CORPUSCULAR HGB CONC 34 g/dL (32.3-35.6); MONOCYTES # (AUTO) 0.5 K/uL (0.1-1.30); MONOCYTES % (AUTO) 6.5 % (0.0-11.0); NEUTROPHILS # (AUTO) 6.5 K/uL (1.8-8.9); NEUTROPHILS % (AUTO) 77.6 % (38.5-71.5); PLATELET COUNT (AUTO) 416 K/uL (179-408); RED CELL DISTRIBUTION WIDTH 15.2 % (12.3-17.7); WHITE BLOOD COUNT (AUTO) 8.3 K/uL (3.8-11.8)
[2024-03-10 06:44] LABS: DIFFERENTIAL COMMENT 1
[2024-03-10 06:59] LABS: CARBON DIOXIDE 26 mmol/L (21-32); CHLORIDE 106 mmol/L (98-107); CREATININE 0.6 mg/dL (0.6-1.3); GLUCOSE 106 mg/dL (74-106); POTASSIUM 4.5 mmol/L (3.5-5.1); SODIUM SERUM 140 mmol/L (136-145); UREA NITROGEN, BLOOD 16 mg/dL (7-18)
[2024-03-10 07:16] LABS: CALCIUM 8.9 mg/dL (8.5-10.1)
[2024-03-10 07:32] LABS: VALPROIC ACID 41 ug/mL (50-100)
[2024-03-10 08:00] VITALS: BP 103/67; TEMP 98.7; O2SAT 95
[2024-03-10 12:00] VITALS: BP 100/59; TEMP 97.2; O2SAT 98
[2024-03-10 16:00] VITALS: BP 111/59; TEMP 97.8; O2SAT 98
[2024-03-10 20:00] VITALS: BP 141/86; TEMP 97.9; O2SAT 96
[2024-03-11 06:00] VITALS: BP 106/70; TEMP 97.8; O2SAT 95
[2024-03-11 07:19] LABS: BASOPHILS # (AUTO) 0.1 K/UL (0.0-0.2); BASOPHILS % (AUTO) 0.6 % (0.0-2.0); EOSINOPHILS # (AUTO) 0.1 K/uL (0.0-0.7); EOSINOPHILS % (AUTO) 0.8 % (0.0-7.0); HEMATOCRIT 34.7 % (31.2-41.9); HEMOGLOBIN 11.8 g/dL (10.9-14.3); LYMPHOCYTES # (AUTO) 1.4 K/uL (0.8-4.8); LYMPHOCYTES % (AUTO) 14.4 % (20.5-51.5); MEAN CORPUSCULAR HEMOGLOBIN 29.3 uug (24.7-32.8); MEAN CORPUSCULAR HGB CONC 34 g/dL (32.3-35.6); MEAN CORPUSCULAR VOLUME 86.4 fL (75.5-95.3); MONOCYTES # (AUTO) 0.6 K/uL (0.1-1.30); NEUTROPHILS # (AUTO) 7.7 K/uL (1.8-8.9); NEUTROPHILS % (AUTO) 78.2 % (38.5-71.5); PLATELET COUNT (AUTO) 409 K/uL (179-408); RED BLOOD CELL COUNT(AUTO) 4.02 MIL/uL (3.63-4.92); RED CELL DISTRIBUTION WIDTH 15.5 % (12.3-17.7); WHITE BLOOD COUNT (AUTO) 9.8 K/uL (3.8-11.8)
[2024-03-11 07:23] LABS: DIFFERENTIAL COMMENT 1
[2024-03-11 07:39] LABS: ALANINE AMINOTRANSFERASE 39 U/L (14-59); ALBUMIN 2.8 g/dL (3.4-5.0); ALKALINE PHOSPHATASE 151 U/L (50-136); ASPARTATE AMINOTRANSFERASE 24 U/L (15-37); BILIRUBIN,TOTAL 0.7 mg/dL (0.2-1.0); CALCIUM 9.1 mg/dL (8.5-10.1); CARBON DIOXIDE 29 mmol/L (21-32); CHLORIDE 103 mmol/L (98-107); CREATININE 0.7 mg/dL (0.6-1.3); GLUCOSE 90 mg/dL (74-106); MAGNESIUM 2.4 mg/dL (1.8-2.4); POTASSIUM 4.6 mmol/L (3.5-5.1); SODIUM SERUM 139 mmol/L (136-145); TOTAL PROTEIN, SERUM 7.6 g/dL (6.4-8.2); UREA NITROGEN, BLOOD 16 mg/dL (7-18)
[2024-03-11 08:27] LABS: IRON, SERUM 25 ug/dL (50-175)
[2024-03-11 10:59] VITALS: BP 100/56; TEMP 98.6; O2SAT 94
[2024-03-11] MEDS: BENZTROPINE MESYLATE 0.5 MG TABLET PO SCH (12:30)
[2024-03-11] MEDS: RISPERIDONE-M 0.25 MG TAB.RAPDIS PO SCH (13:00)
[2024-03-11] MEDS ORDERED: risperiDONE 0.5 MG TABLET PO SCH ×2 (13:00→21:00)
[2024-03-11] MEDS: IV D5/ 0.9% NACL 1,000 ML IV PRN (13:56)
[2024-03-11] MEDS: VALPROATE SODIUM IV SCH (14:21)
[2024-03-11] MEDS: DEXTROSE 5% IV SCH (14:21)
[2024-03-11 15:28] VITALS: BP 120/59; TEMP 98.7; O2SAT 92
[2024-03-11 20:00] VITALS: BP 110/75; TEMP 97.9; O2SAT 96
[2024-03-12 06:00] VITALS: BP 107/57; TEMP 97.9; O2SAT 93
[2024-03-12 11:11] VITALS: BP 135/100; TEMP 99.3; O2SAT 94
[2024-03-12 14:36] VITALS: BP 119/58; TEMP 98.2; O2SAT 97
[2024-03-12 15:08] VITALS: BP 119/58; TEMP 98.2; O2SAT 99
[2024-03-12] MEDS ORDERED: PROPOFOL 200 MG/20 ML BOTTLE ONE (16:00)
[2024-03-12 20:00] VITALS: BP 151/73; TEMP 97.8; O2SAT 95
[2024-03-13 06:01] VITALS: BP 123/63; TEMP 99.7; O2SAT 100
[2024-03-13 06:38] LABS: BASOPHILS % (AUTO) 0.4 % (0.0-2.0); EOSINOPHILS % (AUTO) 0.1 % (0.0-7.0); HEMATOCRIT 30.4 % (31.2-41.9); HEMOGLOBIN 10.4 g/dL (10.9-14.3); LYMPHOCYTES # (AUTO) 1.2 K/uL (0.8-4.8); LYMPHOCYTES % (AUTO) 12.2 % (20.5-51.5); MEAN CORPUSCULAR HEMOGLOBIN 29.5 uug (24.7-32.8); MEAN CORPUSCULAR HGB CONC 34 g/dL (32.3-35.6); MEAN CORPUSCULAR VOLUME 86.6 fL (75.5-95.3); MONOCYTES # (AUTO) 0.6 K/uL (0.1-1.30); MONOCYTES % (AUTO) 6.1 % (0.0-11.0); NEUTROPHILS # (AUTO) 8.2 K/uL (1.8-8.9); NEUTROPHILS % (AUTO) 81.2 % (38.5-71.5); PLATELET COUNT (AUTO) 320 K/uL (179-408); RED BLOOD CELL COUNT(AUTO) 3.51 MIL/uL (3.63-4.92); WHITE BLOOD COUNT (AUTO) 10.1 K/uL (3.8-11.8)
[2024-03-13 06:52] LABS: ALBUMIN 2.4 g/dL (3.4-5.0); BILIRUBIN,TOTAL 0.7 mg/dL (0.2-1.0); CALCIUM 8.8 mg/dL (8.5-10.1); CREATININE 0.7 mg/dL (0.6-1.3); MAGNESIUM 2.2 mg/dL (1.8-2.4); PHOSPHOROUS 3.4 mg/dL (2.5-4.9); TOTAL PROTEIN, SERUM 6.9 g/dL (6.4-8.2)
[2024-03-13 07:27] LABS: DIFFERENTIAL COMMENT 1
[2024-03-13 08:00] VITALS: BP 117/47; TEMP 97.6; O2SAT 97
[2024-03-13 12:00] VITALS: BP 98/55; TEMP 98.2; O2SAT 97
[2024-03-13] MEDS: VALPROIC ACID 250 MG/5 ML LIQUID UDC GT SCH (14:45)
[2024-03-13 16:00] VITALS: BP 111/81; TEMP 97.6; O2SAT 97
[2024-03-13 18:20] LABS: *BILIRUBIN,URIN NEGATIVE (NEGATIVE); *BLOOD, URINE NEGATIVE (NEGATIVE); *CLARITY,URINE CLEAR (CLEAR); *COLOR,URINE YELLOW (YELLOW); *KETONES,URINE NEGATIVE (NEGATIVE); *PROTEIN,URINE NEGATIVE (NEGATIVE); *UROBILINOGEN,URINE 0.2 E.U./dl (NORMAL); LEUKOCYTE ESTERASE ,URINE NEGATIVE (NEGATIVE); NITRITE, URINE NEGATIVE (NEGATIVE); PH,URINE 5.5 (5.0-8.0); UGLUCOSE NEGATIVE (NEGATIVE)
[2024-03-13 19:41] VITALS: BP 110/65; TEMP 98.4; O2SAT 97
[2024-03-14 05:10] VITALS: BP 122/56; TEMP 98.3; O2SAT 97
[2024-03-14 05:32] VITALS: BP 122/56; TEMP 98.3; O2SAT 97
[2024-03-14 06:57] LABS: BASOPHILS % (AUTO) 0.3 % (0.0-2.0); EOSINOPHILS % (AUTO) 0.5 % (0.0-7.0); HEMOGLOBIN 9.7 g/dL (10.9-14.3); LYMPHOCYTES # (AUTO) 1.2 K/uL (0.8-4.8); LYMPHOCYTES % (AUTO) 13.8 % (20.5-51.5); MEAN CORPUSCULAR HEMOGLOBIN 29.3 uug (24.7-32.8); MEAN CORPUSCULAR HGB CONC 34 g/dL (32.3-35.6); MEAN CORPUSCULAR VOLUME 87.5 fL (75.5-95.3); MONOCYTES # (AUTO) 0.6 K/uL (0.1-1.30); MONOCYTES % (AUTO) 7.1 % (0.0-11.0); NEUTROPHILS # (AUTO) 6.8 K/uL (1.8-8.9); NEUTROPHILS % (AUTO) 78.3 % (38.5-71.5); PLATELET COUNT (AUTO) 281 K/uL (179-408); RED BLOOD CELL COUNT(AUTO) 3.31 MIL/uL (3.63-4.92); RED CELL DISTRIBUTION WIDTH 15.1 % (12.3-17.7); WHITE BLOOD COUNT (AUTO) 8.7 K/uL (3.8-11.8)
[2024-03-14 07:01] LABS: DIFFERENTIAL COMMENT 1
[2024-03-14 07:24] LABS: CALCIUM 8.3 mg/dL (8.5-10.1); CREATININE 0.7 mg/dL (0.6-1.3); MAGNESIUM 2.1 mg/dL (1.8-2.4); PHOSPHOROUS 3.3 mg/dL (2.5-4.9); POTASSIUM 3.5 mmol/L (3.5-5.1)
[2024-03-14 12:01] VITALS: BP 118/56; TEMP 98; O2SAT 95
[2024-03-14] MEDS ORDERED: FERR325T28 GT (14:35)
[2024-03-14] MEDS ORDERED: BENZ0.5T43 GT (14:35)
[2024-03-14] MEDS ORDERED: MULT-1045 GT (14:35)
[2024-03-14] MEDS ORDERED: MENT113O TOP (14:35)
[2024-03-14] MEDS ORDERED: LACT-209 GT (14:35)
[2024-03-14] MEDS ORDERED: RISP0.5T65 GT (14:35)
[2024-03-14] MEDS ORDERED: CRAN450T9 GT (14:35)
[2024-03-14] MEDS ORDERED: PANT40SU2 GT (14:35)
[2024-03-14] MEDS ORDERED: APIX5TAB NG (14:35)
[2024-03-14] MEDS ORDERED: ACET-2154 GT (14:35)
[2024-03-14] MEDS ORDERED: VALP250S22 GT (14:35)
== END 2024-03-14 16:10 | DRG 208 ==
LOC: ER 06:39 → TRANSITION 08:35 → CCU 09:49 → TELE-TD3 03-02 12:24 → TELE3 03-03 10:21 → MEDSURG3 03-06 09:00
PROVIDERS: ADMIT Internal Medicine; ATTEND Internal Medicine
PROC: 5A1945Z Respiratory Ventilation, 24-96 Consecutive Hours (ICD-10-PCS; principal; 2024-02-27)
PROC: 5A2204Z Restoration of Cardiac Rhythm, Single (ICD-10-PCS; 2024-02-27)
PROC: 05HB33Z Insertion of Infusion Device into Right Basilic Vein, Percutaneous Approach (ICD-10-PCS; 2024-03-01)
PROC: 06H03DZ Insertion of Intraluminal Device into Inferior Vena Cava, Percutaneous Approach (ICD-10-PCS; 2024-03-03)
PROC: B5191ZZ Fluoroscopy of Inferior Vena Cava using Low Osmolar Contrast (ICD-10-PCS; 2024-03-03)
PROC: B51L1ZZ Fluoroscopy of Bilateral Renal Veins using Low Osmolar Contrast (ICD-10-PCS; 2024-03-03)
PROC: 0DH63UZ Insertion of Feeding Device into Stomach, Percutaneous Approach (ICD-10-PCS; 2024-03-12)
DX: I26.94 Multiple subsegmental thrombotic pulmonary emboli without acute cor pulmonale (principal); J96.01 Acute respiratory failure with hypoxia; N17.0 Acute kidney failure with tubular necrosis; J69.0 Pneumonitis due to inhalation of food and vomit; E43 Unspecified severe protein-calorie malnutrition; I46.9 Cardiac arrest, cause unspecified; J15.211 Pneumonia due to Methicillin susceptible Staphylococcus aureus; I47.10 Supraventricular tachycardia, unspecified; R57.9 Shock, unspecified; I82.413 Acute embolism and thrombosis of femoral vein, bilateral; I82.432 Acute embolism and thrombosis of left popliteal vein; E87.0 Hyperosmolality and hypernatremia; F03.93 Unspecified dementia, unspecified severity, with mood disturbance; F03.92 Unspecified dementia, unspecified severity, with psychotic disturbance; R47.01 Aphasia; G93.40 Encephalopathy, unspecified; I26.99 Other pulmonary embolism without acute cor pulmonale; Z86.74 Personal history of sudden cardiac arrest; Z98.82 Breast implant status; E87.6 Hypokalemia; S20.419D Abrasion of unspecified back wall of thorax, subsequent encounter; X58.XXXD Exposure to other specified factors, subsequent encounter; Z66 Do not resuscitate; R13.10 Dysphagia, unspecified; M19.90 Unspecified osteoarthritis, unspecified site; Z78.1 Physical restraint status; Z79.899 Other long term (current) drug therapy; R74.01 Elevation of levels of liver transaminase levels; R79.89 Other specified abnormal findings of blood chemistry; Z86.73 Personal history of transient ischemic attack (TIA), and cerebral infarction without residual deficits; K29.70 Gastritis, unspecified, without bleeding; I11.9 Hypertensive heart disease without heart failure; D63.8 Anemia in other chronic diseases classified elsewhere
CPT/HCPCS: 36415; 36600; 70450; 71045; 71275; 73503; 74018; 80164; 82803; 83550; 83605; 83735; 84100; 84484; 85025; 85610; 85730; 87040; 92950; 93005; 93307; 94002; 94003; 94640; 94760; 99082-TC; A4606; A4663; A6213; C1758; C1769; C9113; G0378; J0282; J0330; J0696; J1644; J1650; J2060; J2358; J2405; J2543; J3010; J3480; J3490; J7040; J7042; J7050; J7060; J7070; P9045; Q9967